=== PATIENT | female | born 1995 | race Native Hawaiian/Other Pacific Islander ===

== ENCOUNTER 2019-02-08 19:00 | Emergency (ER) | payer OTHER ==
[~2019-02-08] VITALS: Ht 167.6 cm; Wt 117.9 kg
[2019-02-08 20:20] LABS: PLATELET COUNT 346 K/uL (152-353)
[2019-02-08 20:24] LABS: POTASSIUM 3.4 mmol/L (3.6-5.2)
[2019-02-08 23:40] VITALS: BP 121/78; TEMP 97.8
== END 2019-02-08 23:40 | disposition short-term general hospital (02) ==
LOC: ED 19:00
PROVIDERS: Student in an Organized Health Care Education/Training Program
DX: K35.80 Unspecified acute appendicitis (principal); N92.0 Excessive and frequent menstruation with regular cycle
CPT/HCPCS: 36415; 80053; 81000; 81025; 83690; 83735; 84702; 85027; 86900; 86901; 96360; 96361; 96365; 96375; 99284; J1885; J2543

== ENCOUNTER 2019-02-08 23:55 | Outpatient (CLI) | payer OTHER | END 2019-02-09 00:11 | disposition short-term general hospital (02) | LOC: AMB 23:55 | DX: K35.80 Unspecified acute appendicitis (principal) | CPT/HCPCS: A0425; A0429 ==